=== PATIENT | female | born 1960 | race Caucasian/White ===

== ENCOUNTER → 2016-08-11 | Outpatient (CLI) | payer OTHER ==
[~2016-08-11] MED LIST: ALLERGY RELIEF10 M2 PO; ASPIRIN EC81 MG PO; ASPIRIN325 MG PO; COLACE 100MG C100 MG PO; COZAAR100 MG PO; ELIQUIS 5 MG TAB5 MG PO; GLUCOPHAGE XR500 MG PO; LEVEMIR100 UNIT/1 SQ; LEVOTHYROXINE75 MCG PO; LOFIBRA160 MG PO; MICROZIDE12.5 MG PO; NORVASC 5 MG TAB5 MG PO; O2; PHENERGAN6.25 MG/1 PO; PRAVACHOL40 MG PO; TOPROL XL50 MG PO; VENTOLIN HFA 66.7 GM INH; VITAMIN D50000 UNIT PO; ZANTAC150 MG PO; ZOLOFT50 MG PO
== END ==
LOC: OPSV 10:00
DX: C34.11 Malignant neoplasm of upper lobe, right bronchus or lung (principal)

== ENCOUNTER → 2016-08-12 | Outpatient (CLI) | payer OTHER | LOC: OPSV 14:56 | DX: C34.90 Malignant neoplasm of unspecified part of unspecified bronchus or lung (principal) | CPT/HCPCS: G0463 ==

== ENCOUNTER → 2016-08-14 | Outpatient (CLI) | payer OTHER | LOC: EMI 14:30 | DX: C34.11 Malignant neoplasm of upper lobe, right bronchus or lung (principal); R90.89 Other abnormal findings on diagnostic imaging of central nervous system | CPT/HCPCS: 70553; A9577; J7050 ==

== ENCOUNTER → 2016-08-19 | Outpatient (CLI) | payer OTHER | LOC: OPSV 14:55 | DX: C34.90 Malignant neoplasm of unspecified part of unspecified bronchus or lung (principal) | CPT/HCPCS: G0463 ==

== ENCOUNTER 2017-01-28 19:47 | Inpatient (IN) | payer OTHER ==
[~2017-01-28] VITALS: Ht 160 cm; Wt 73.1 kg
[~2017-01-28 19:47] MED LIST changes: -ASPIRIN EC81 MG PO; -COLACE 100MG C100 MG PO; -COZAAR100 MG PO; -ELIQUIS 5 MG TAB5 MG PO; -LEVEMIR100 UNIT/1 SQ; -O2; -TOPROL XL50 MG PO; -ZANTAC150 MG PO; -ZOLOFT50 MG PO
[2017-01-28 20:34] LABS: RED BLOOD COUNT 5.05 M/UL (4.00-5.10); WHITE BLOOD COUNT 12.6 K/UL (4.5-11.0)
[2017-01-29] MEDS ORDERED: ZANTAC150 MG PO (00:22)
[2017-01-29] MEDS ORDERED: COLACE 100MG C100 MG PO (00:22)
[2017-01-29] MEDS ORDERED: COZAAR100 MG PO (00:23)
[2017-01-30] MEDS ORDERED: ELIQUIS 5 MG TAB5 MG PO (10:17)
[2017-01-30] MEDS ORDERED: ASPIRIN EC81 MG PO (10:18)
[2017-01-30] MEDS ORDERED: LEVEMIR100 UNIT/1 SQ (10:23)
[2017-01-30] MEDS ORDERED: TOPROL XL50 MG PO (10:25)
[2017-01-30] MEDS ORDERED: ZOLOFT50 MG PO (10:26)
[2017-01-30] MEDS ORDERED: O2 (10:30)
== END 2017-01-30 11:26 | disposition home or self-care (01) | DRG 309 ==
LOC: ER1 19:47 → PROG CARE 21:52 → ZEROF 21:52 → PROG CARE 01-29 00:14
PROVIDERS: Emergency Medicine; ADMIT Internal Medicine
DX: I48.91 Unspecified atrial fibrillation (principal); J96.11 Chronic respiratory failure with hypoxia; J44.9 Chronic obstructive pulmonary disease, unspecified; E11.65 Type 2 diabetes mellitus with hyperglycemia; E03.9 Hypothyroidism, unspecified; E78.5 Hyperlipidemia, unspecified; K21.9 Gastro-esophageal reflux disease without esophagitis; R07.9 Chest pain, unspecified; F32.9 Major depressive disorder, single episode, unspecified; Z85.118 Personal history of other malignant neoplasm of bronchus and lung; Z87.891 Personal history of nicotine dependence; Z72.3 Lack of physical exercise; Z79.84 Long term (current) use of oral hypoglycemic drugs; Z79.82 Long term (current) use of aspirin; Z99.81 Dependence on supplemental oxygen; Z79.899 Other long term (current) drug therapy; Z90.2 Acquired absence of lung [part of]; Z90.710 Acquired absence of both cervix and uterus; Z98.890 Other specified postprocedural states; Z82.49 Family history of ischemic heart disease and other diseases of the circulatory system
CPT/HCPCS: ECHO; 36415; 71010; 80053; 80061; 82550; 82553; 82962; 83036; 83880; 84443; 84484; 85025; 85610; 85730; 93005; 93306; 94640; 94664; 96374; 96375; 99285; J1650; J2270; J7050; Q9963

== ENCOUNTER → 2017-02-13 | Outpatient (CLI) | payer OTHER ==
[~2017-02-13] MED LIST changes: +ASPIRIN EC81 MG PO; +COLACE 100MG C100 MG PO; +COZAAR100 MG PO; +ELIQUIS 5 MG TAB5 MG PO; +LEVEMIR100 UNIT/1 SQ; +O2; +TOPROL XL50 MG PO; +ZANTAC150 MG PO; +ZOLOFT50 MG PO
== END ==
LOC: RT 10:48
DX: R09.02 Hypoxemia (principal)
CPT/HCPCS: 36600; 82803